=== PATIENT | female | born 1995 | race Caucasian/White ===

== ENCOUNTER 2023-11-10 12:22 | Emergency (ER) | payer OTHER ==
[2023-11-10 12:50] LABS: #Lymphocytes 0.8 thou/uL (1.20-3.40); #Monocytes 1.2 thou/uL (0.11-0.59); #Neutrophils 11.9 thou/uL (1.40-6.50); %Basophils 0.3 % (0.0-1.0); %Eosinophils 0.1 % (0.0-10.0); %Lymphocytes 5.7 % (21.0-51.0); %Monocytes 8.7 % (0.0-10.0); %Neutrophils 85.2 % (42.0-75.0); Hematocrit 38.1 % (36.0-47.0); Hemoglobin 12.8 g/dL (12.0-16.0); Mean Corpuscular HGB CONC 33.5 g/dL (32.0-36.0); Mean Corpuscular Hemoglobin 29.1 pg (27.0-31.0); Mean Corpuscular Volume 86.8 fl (78.0-98.0); Mean Platelet Volume 9.3 fL (7.4-10.4); Platelet Count 235 10x3/uL (130-400); RBC Distribution Width 11.9 % (11.5-14.5); Red Blood Cell (RBC) Count 4.39 mill/uL (4.20-5.40)
[2023-11-10 13:02] LABS: Bilirubin Moderate (Negative); Blood, Urine Large (Negative); Clarity Cloudy (Clear); Glucose, Urine (Dipstick) Negative (Negative); Ketone, Urine Trace mg/dL (Negative); Leukocyte Small (Negative); Nitrite Negative (Negative); Protein, Urine (Dipstick) > or equal to 300 mg/dL (Neg-Trace); pH, Urine 5.5 (5.0-9.0)
[2023-11-10 13:03] LABS: ALT (SGPT) 22 U/L (8-55); AST (SGOT) 15 U/L (5-34); Albumin 3.5 g/dL (3.5-5.0); Alkaline Phosphatase 109 U/L (40-110); Anion Gap 14 mmol/L (10-20); BUN (Urea Nitrogen) 27 mg/dL (7.0-18.7); Bilirubin, Total 0.5 mg/dL (0.2-1.2); Calc. Creatinine Clearance 0 mL/min (70-130); Calcium 9.4 mg/dL (7.8-10.44); Carbon Dioxide 23 mmol/L (22-29); Chloride 105 mmol/L (98-107); Estimated GFR 39; Globulin 3.9 g/dL (2.4-3.5); Glucose 105 mg/dL (70-105); Potassium 3.4 mmol/L (3.5-5.1); Protein, Total 7.4 g/dL (6.0-8.3); Sodium 139 mmol/L (136-145)
[2023-11-10 13:11] LABS: CAUTI Indications for Culture Fever or rigors
[2023-11-10 13:12] LABS: Bacteria/HPF 3+ HPF (None Seen)
[2023-11-10 13:13] LABS: Urine Culture Reflex Yes Yes
[2023-11-10] MEDS ORDERED: cefTRIAXone (ROCEPHIN) 1 GM VIAL ONE (13:56)
[2023-11-10] MEDS ORDERED: Sodium Chloride 0.9% 100 ML ONE (13:56)
== END 2023-11-10 14:20 | disposition short-term general hospital (02) ==
LOC: BURERS 12:22
DX: K80.20 Calculus of gallbladder without cholecystitis without obstruction (principal); R50.9 Fever, unspecified
CPT/HCPCS: 71046; 74176; 80053; 81001; 83605; 85025; 87077; 87086; 87186; 87804; 96361; 96365; J0696; J3490